=== PATIENT | female | born 1980 | race Two or more races ===

== ENCOUNTER 2025-03-07 16:44 | Emergency (ER) | payer MEDICARE, OTHER ==
[~2025-03-07] VITALS: Ht 165.1 cm; Wt 42.2 kg
--- NOTE | 2025-03-07 17:08 | ED.PDOC ---
History of Present Illness HPI Comments 44-year-old female presents with a chief complaint of abscess/lump to her left buttocks. Patient is deaf and only speaks sign language. Patient has a localized lump to her left buttock that is erythematous and has not ever had an I&D. Patient is thin and states that it is from her having breast cancer. Patient is cancer free at this time. Patient does utilize some unknown medications. Patient can not remember what she is taking. It appears that one of the medications as an antibiotic. Vital signs were stable on arrival. Time Seen by MD: 16:58 Reviewed Notes: Nurses Notes, Medications, Allergies Allergies: Coded Allergies: NO KNOWN ALLERGIES (Unverified , 03/07/25) Home Meds Active Scripts Ibuprofen Micronized (Ibuprofen) 600 Mg Tab, 600 MG PO Q6HP PRN, #20 TAB Prov:CYNTHIA AHMADI PAC 03/07/25 Sulfamethoxazole W/Trimethopri (Bactrim Ds Tablet) 1 Tab Tb, 1 TAB PO BID for 10 Days, #20 TAB Prov:CYNTHIA AHMADI PAC 03/07/25 Information Source: Patient, Relative (Child) Mode of Arrival: Ambulatory Severity: Moderate Timing: Days Duration: Since onset Prehospital treatment: None Past Medical History PAST MEDICAL HISTORY: Cancer Past Medical History (Other): DEAF Surgical History: Denies all surgeries [employer]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 Family History Family History: Reviewed,noncontributory to illness Social History Smoker: Non-Smoker Alcohol: Denies ETOH Use Drugs: Denies Drug Use Lives In: Home Constitutional: denies: chills, diaphoresis, fatigue, fever, malaise, sweats, weakness, others EENTM: denies: blurred vision, double vision, ear bleeding, ear discharge, ear drainage, ear pain, ear ringing, eye pain, eye redness, hearing loss, mouth pain, mouth swelling, nasal discharge, nose bleeding, nose congestion, nose pain, photophobia, tearing, throat pain, throat swelling, voice changes, others Respiratory: denies: cough, hemoptysis, orthopnea, SOB at rest, shortness of breath, SOB with excertion, stridor, wheezing, others Cardiovascular: denies: chest pain, dizzy spells, diaphoresis, Dyspnea on exertion, edema, irregular heart beat, left arm pain, lightheadedness, palpitations, PND, syncope, others Gastrointestinal: denies: abdomen distended, abdominal pain, blood streaked bowels, constipated, diarrhea, dysphagia, difficulty swallowing, hematemesis, melena, nausea, poor appetite, poor fluid intake, rectal bleeding, rectal pain, vomiting, others Genitourinary: denies: abnormal vagina bleeding, burning, dyspareunia, dysuria, flank pain, frequency, hematuria, incontinence, pain, , vagina discharge, urgency, others Neurological: denies: dizziness, fainting, headache, left sided numbness, left sided weakness, numbness, paresthesia, pre-existing deficit, right sided numbness, right sided weakness, seizure, speech problems, tingling, tremors, weakness, others Musculoskeletal: denies: back pain, gout, joint pain, joint swelling, muscle pain, muscle stiffness, neck pain, others Integumetry: reports: wounds (Patient is a large abscess to the right buttocks near the rectum and vagina.); denies: bruises, change in color, change in hair/nails, dryness, laceration, lesions, lumps, rash, others Allergic/Immunocompromised: denies: Difficulty Healing, Frequent Infections, Hives, Itching, others Hematologic/Lymphatic: denies: anemia, blood clots, easy bleeding, easy bruising, swollen glands, others Endocrine: denies: excessive hunger, excessive sweating, excessive thirst, excessive urination, flushing, intolerance to cold, intolerance to heat, unexplained weight gain, unexplained weight loss, others Psychiatric: denies: anxiety, bipolar disorder, depression, hopeless, panic disorder, schizophrenia, sleepless, suicidal, others All Other Systems: Reviewed and Negative Physical Exam General Appearance: Moderate Distress (Due to the pain related to the groin abscess), Normal HEENT: Normal ENT Inspection, Pharynx Normal, TMs Normal Neck: Full Range of Motion, Non-Tender, Normal, Normal Inspection Respiratory: Chest Non-Tender, Lungs Clear, No Accessory Muscle Use, No Respiratory Distress, Normal Breath Sounds Cardiovascular: No Edema, No JVD, No Murmur, No Gallop, Normal Peripheral Pulses, Regular Rate/Rhythm Breast Exam: Deferred Gastrointestinal: No Organomegaly, Non Tender, No Pulsatile Mass, Normal Bowel Sounds, Soft Genitalia: Deferred Pelvic: Deferred Rectal: Deferred Extremities: No calf tenderness, Normal capillary refill, Normal inspection, Normal range of motion, Non-tender, No pedal edema Musculoskeletal : Apperance: Normal Neurologic: Alert, No Motor Deficits, Normal Affect, Normal Mood, No Sensory Deficits Cerebellar Function: Normal Reflexes: Normal Skin: Dry, Wounds (Patient has a walnut sized loculated abscess noted to the inferior left gluteal region. Erythema and edema noted throughout. No active drainage.) Lymphatic: No Adenopathy Was a procedure done? Was a procedure done?: Yes Sedation Sedation?: No Other Procedure Notes 2 cc of 1% lidocaine was utilized for local anesthesia. A 1 cm incision was performed and moderate serosanguineous fluid was evacuated from the left gluteal abscess. Patient tolerated procedure well. Clean dressing applied. Differential Dx Considerations may include: Abscess X-Ray, Labs, Meds, VS Vital Signs Date Time Temp Pulse Resp B/P (MAP) Pulse Ox O2 Delivery O2 Flow Rate FiO2 03/07/25 17:00 98.5 91 20 92/50 (64) 97 98.5 X-Ray, Labs, Meds, VS Comment Advise the patient that we now have a drainage port for this abscess. Advised patient to stop the antibiotics she is currently taking and start the antibiotics that I prescribed her today. Pain medication as needed. Patient should follow up with the primary care provider in the next several days. Advised putting dried bandages on periodically to aid in protection from drainage. Patient can do warm soaks as well. Time of 1ST Reevaluation: 17:25 Reevaluation 1ST: Improved Consultation: PCP Patient Education/Counseling: Diagnosis, Treatment, Need For Follow Up Family Education/Counseling: Diagnosis, Treatment, No Family Present SEPSIS Sepsis Screen Recent Procedure: No On Antibiotic Therapy: No Respiratory Rate >20: No Heart Rate >90: No Temp<36 C (96.8 F) or >38.3 C: No SBP <90 or MAP <65 mmHG: No New Acute Mental Status Change: No Is the patient on CPAP, BIPAP,: No Vital Signs Date Time Temp Pulse Resp B/P (MAP) Pulse Ox O2 Delivery O2 Flow Rate FiO2 03/07/25 17:00 98.5 91 20 92/50 (64) 97 98.5 Departure 1 Departure Time of Disposition: 17:25 Impression: Primary Impression: Abscess Disposition: 01 HOME / SELF CARE / HOMELESS Condition: Stable Additional Instructions: Advised patient utilize medication as directed until completion. Patient should follow up with the primary care provider in the next few days for re-evaluation. Pain medication as needed. e-Prescriptions Hydrocodone-Acetaminophen (Hydrocodone Bitartrate/AC 5-325 mg) 1 Tab Tab 1 TAB PO Q6HP PRN, #15 TAB Prov: CYNTHIA AHMADI PAC 03/07/25 Ibuprofen Micronized (Ibuprofen) 600 Mg Tab 600 MG PO Q6HP PRN, #20 TAB Prov: CYNTHIA AHMADI PAC 03/07/25 Sulfamethoxazole W/Trimethopri (Bactrim Ds Tablet) 1 Tab Tb 1 TAB PO BID for 10 Days, #20 TAB Prov: CYNTHIA AHMADI PAC 03/07/25 Discharged With: Self, Relative Critical Care Note Critical Care Time?: No Stability Stability form required: No Heart Score Heart Score: Heart Score Response (Comments) Value History N/A 0 EKG N/A 0 Age N/A 0 Risk Factors N/A 0 Troponin N/A 0 Total 0 I personally scribed for CYNTHIA AHMADI PAC ([email or web address]) on 03/07/25 at 17:08. Electronically submitted by Emmett Wolf ([email or web address]). CYNTHIA AHMADI PAC Mar 07, 2025 17:08
[2025-03-07] MEDS ORDERED: IBUP1TAB5 PO (17:27)
[2025-03-07] MEDS ORDERED: BACDST PO (17:27)
[2025-03-07] MEDS ORDERED: HYDR-4902 PO (18:13)
[2025-03-07 18:20] VITALS: BP 92/63; PULSE 88; RESP 18; TEMP 97.9; O2SAT 97
== END 2025-03-07 18:21 | disposition home or self-care (01) ==
LOC: ER 16:44
DX: L02.31 Cutaneous abscess of buttock (principal); C50.919 Malignant neoplasm of unspecified site of unspecified female breast; Z79.899 Other long term (current) drug therapy
CPT/HCPCS: 10060